=== PATIENT | male | born 1980 | race Caucasian/White ===

== ENCOUNTER → 2022-01-15 | Outpatient (CLI) | payer OTHER ==
[~2022-01-15] MED LIST: BACL10TA2 PO; COLA100C5 PO; DEXI60CA2 PO; FAMO20TA5 PO; FLUO10CA18 PO; LORA2CON5 PO; MAAL10003 PO; PRAV20TA2 PO; QUET100T2 PO; TEST5GEL TOP; [UNRECOGNIZED DRUG - CODE] IT
== END ==
LOC: M LABSMTC 10:06
PROVIDERS: ATTEND Anesthesiology
DX: Z11.52 Encounter for screening for COVID-19 (principal); Z20.822 Contact with and (suspected) exposure to COVID-19